=== PATIENT | male | born 1980 | race Two or more races ===

== ENCOUNTER → 2024-08-08 | Outpatient (REF) | payer SELFPAY | LOC: M SFHCLERA 08:52 | PROVIDERS: ATTEND Internal Medicine | DX: Z53.9 Procedure and treatment not carried out, unspecified reason (principal) ==

== ENCOUNTER → 2024-11-27 | Outpatient (CLI) | payer OTHER | LOC: M SLEEP 20:00 | PROVIDERS: ATTEND Nurse Practitioner Family | DX: R06.83 Snoring (principal) ==

== ENCOUNTER → 2025-02-08 | Outpatient (REF) | LOC: M PLAIMG 09:33 | PROVIDERS: ATTEND Internal Medicine | DX: R52 Pain, unspecified (principal) ==